=== PATIENT | male | born 1995 | race Caucasian/White ===

== ENCOUNTER 2017-10-13 10:57 | Emergency (ER) | payer OTHER, MEDICAID ==
[2017-10-13] MEDS: LEVETIRACETAM 500 MG (PMX) 100 ML IVPB (12:00)
[2017-10-13 12:18] LABS: ADD MAN DIFF? NO
[2017-10-13 12:19] LABS: BASOPHILS % 0.3 % (0.0-2.0); EOSINOPHILS % 0.3 % (0.0-7.0); HEMATOCRIT 44.1 % (42.0-52.0); HEMOGLOBIN 14.4 g/dl (14.0-18.0); LYMPHOCYTES % 18.5 % (15.0-51.0); MEAN CORPUSCULAR HEMOGLOBIN 29.1 pg (29.0-33.0); MEAN CORPUSCULAR HGB CONC 32.7 g/dl (32.0-37.0); MEAN CORPUSCULAR VOLUME 89.3 fl (82.0-101.0); MEAN PLATELET VOLUME 11.1 fl (7.4-10.4); MONOCYTE # 0.7 10^3/ul (0.3-0.9); MONOCYTES % 6.2 % (0.0-11.0); NEUTROPHIL # 7.9 10^3/ul (1.6-7.5); NEUTROPHILS % 74.1 % (39.0-77.0); PLATELET COUNT 234 10^3/UL (140-415); RED BLOOD COUNT 4.94 10^6/ul (4.70-6.10); RED CELL DISTRIBUTION WIDTH 13.2 % (11.5-14.5)
[2017-10-13 12:19] LABS: WHITE BLOOD COUNT 10.6 10^3/ul (4.8-10.8)
[2017-10-13 12:36] LABS: ALANINE AMINOTRANSFERASE 28 IU/L (13-69); ALBUMIN 4.4 g/dl (3.3-4.9); ALBUMIN/GLOBULIN RATIO 1.22; ALKALINE PHOSPHATASE 119 IU/L (42-121); ANION GAP 21 (8-16); ASPARTATE AMINO TRANSFERASE 23 IU/L (15-46); BLOOD UREA NITROGEN 14 mg/dl (7-20); CALCIUM 9.6 mg/dl (8.4-10.2); CARBON DIOXIDE 27 mmol/L (21-31); CHLORIDE 105 mmol/L (97-110); CREATININE 0.93 mg/dl (0.61-1.24); GLUCOSE 89 mg/dl (70-220); LIPASE 160 U/L (23-300); POTASSIUM 4.8 mmol/L (3.5-5.1); SODIUM 148 mmol/L (135-144)
[2017-10-13] MEDS: SOD CHLORIDE 0.9% 500 ML IV (12:39)
[2017-10-13 13:03] LABS: ADD UMIC YES; UR ASCORBIC ACID NEGATIVE (NEGATIVE); UR BILIRUBIN (Dip) NEGATIVE (NEGATIVE); UR BLOOD (Dip) NEGATIVE (NEGATIVE); UR CLARITY CLOUDY (CLEAR); UR COLOR YELLOW (YELLOW); UR GLUCOSE (Dip) NEGATIVE (NEGATIVE); UR KETONES (Dip) NEGATIVE (NEGATIVE); UR LEUKOCYTE ESTERASE (Dip) TRACE Leu/ul (NEGATIVE); UR NITRITE (Dip) NEGATIVE (NEGATIVE); UR RBC 2 /HPF (0-5); UR SPECIFIC GRAVITY (Dip) 1.018 (1.003-1.030); UR TOTAL PROTEIN (Dip) NEGATIVE (NEGATIVE); UR UROBILINOGEN (Dip) NEGATIVE (NEGATIVE); UR WBC 8 /HPF (0-5)
[2017-10-13] MEDS: CEFTRIAXONE 1 GM INJ IM (14:10)
== END 2017-10-13 17:17 | disposition home or self-care (01) ==
LOC: E/R 10:57
DX: R56.9 Unspecified convulsions (principal); G80.0 Spastic quadriplegic cerebral palsy; N30.00 Acute cystitis without hematuria; R40.2142 Coma scale, eyes open, spontaneous, at arrival to emergency department; R40.2212 Coma scale, best verbal response, none, at arrival to emergency department; R40.2342 Coma scale, best motor response, flexion withdrawal, at arrival to emergency department
CPT/HCPCS: 36415; 71045; 80053; 81001; 83690; 85025; 96372; 96374; 99284-25

== ENCOUNTER 2019-03-21 17:05 | Emergency (ER) | payer OTHER ==
[2019-03-21] MEDS: LEVETIRACETAM 1000 MG (PMX) 100 ML IVPB (17:48)
[2019-03-21 18:00] LABS: ANION GAP 18 (5-13); BLOOD UREA NITROGEN 11 mg/dl (7-20); CALCIUM 9.5 mg/dl (8.4-10.2); CARBON DIOXIDE 20 mmol/L (21-31); CHLORIDE 102 mmol/L (97-110); CREATININE 1.02 mg/dl (0.61-1.24); Estimated GFR > 60 mL/min (>60); GLUCOSE 78 mg/dl (70-220); SODIUM 140 mmol/L (135-144)
== END 2019-03-21 19:43 | disposition home or self-care (01) ==
LOC: E/R 17:05
DX: G40.909 Epilepsy, unspecified, not intractable, without status epilepticus (principal)
CPT/HCPCS: 70450; 80048; 96374; 99285-25